=== PATIENT | male | born 1955 | race Caucasian/White ===

== ENCOUNTER 2018-11-18 13:36 | Emergency (ER) | payer SELFPAY ==
[~2018-11-18] VITALS: Ht 170.2 cm; Wt 86.7 kg
[~2018-11-18 13:36] MED LIST: IBUP-1542 PO
[2018-11-18 13:47] VITALS: Ht 170.2 cm; Wt 86.7 kg
[2018-11-18] MEDS ORDERED: ONDANSETRON 4 MG INJ IV STA (14:15)
[2018-11-18 15:46] VITALS: BP 143/74; PULSE 83; RESP 16
--- NOTE | 2018-11-18 18:29 | ERD ---
ER Documentation Chief Complaint Chief Complaint pt stated hitting head multiple times at work, c/o headache, dizz, n/v HPI This is a 62-year-old man who states at work he struck his head multiple times accidentally against some wall cabinets and is worried because he has struck his head at least a few times over the last few weeks. He states he has a mild headache with some dizziness, but denies vomiting, no blurry vision, no loss of consciousness, no slurred speech, no weakness in his arms or legs ROS All systems reviewed and are negative except as per history of present illness. Medications Home Meds Active Scripts Ibuprofen* (Motrin*) 600 Mg Tab, 600 MG PO Q8 PRN for PAIN AND/OR INFLAMMATION, #30 TAB Prov:NEY ACEVEDO MD 11/18/18 Reported Medications [None] No Conflict Check 05/30/11 Allergies Allergies: Coded Allergies: No Known Allergies (Verified Allergy, Unknown, 11/18/18) PMhx/Soc History of Surgery: Yes (APPY ) Anesthesia Reaction: No Hx Neurological Disorder: No Hx Alcohol Use: Yes (SOCIALLY) Hx Substance Use: No Hx Tobacco Use: No Smoking Status: Never smoker FmHx Family History: No diabetes Physical Exam Vitals Vital Signs Date Temp Pulse Resp B/P (MAP) Pulse Ox O2 O2 Flow FiO2 Time Delivery Rate 11/18/18 98.7 83 16 143/74 98 Room Air 15:46 (97) 11/18/18 98.7 91 16 174/93 98 13:47 (120) Physical Exam Const: No acute distress, well-developed well-nourished, afebrile HEENT: No evidence of hematomas or contusion to the scalp or forehead, cervical spine without deformity and nontender Resp: Clear to auscultation bilaterally Cardio: Regular rate and rhythm, no murmurs Ext: No cyanosis, or edema Neur: Awake and alert x3, no focal deficits or facial asymmetry, pupils equal round reactive to light Psych: Normal Mood and Affect Results 24 hrs Current Medications Medications Dose Sig/Kailyn Start Time Status Last (Trade) Ordered Route PRN Stop Time Admin Dose Reason Admin Ondansetron 4 mg ONCE STAT 11/18/18 DC 11/18/18 HCl (Zofran IV 14:15 14:40 Inj) 7/31/19 14:16 Procedures/MDM I administered Zofran 4 mg IV for dizziness. CT scan of the brain was negative for acute bleed mass or shift. Patient has a GCS of 15 and no neurologic deficits on examination, gait is normal and patient has no signs of serious underlying injury and no evidence of serious trauma. Patient feels much better at this time, and vital signs are normal, symptoms have improved. I did give strict instructions to return to the ED if symptoms continue or worsen, patient will otherwise follow-up with primary care physician. Patient understood instructions and agreed to plan. Disclaimer: Inadvertent spelling and grammatical errors are likely due to EHR/dictation software use and do not reflect on the overall quality of patient care. Also, please note that the electronic time recorded on this note does not necessarily reflect the actual time of the patient encounter. Departure Diagnosis: Primary Impression: Head ache Headache type: tension-type Headache chronicity pattern: acute headache Intractability: not intractable Qualified Codes: G44.209 - Tension-type headache, unspecified, not intractable Additional Impression: Closed head injury Encounter type: initial encounter Qualified Codes: S09.90XA - Unspecified injury of head, initial encounter Condition: Good Patient Instructions: HEAD INJURY, No Wake-Up (Adult) NEY ACEVEDO MD Nov 18, 2018 18:29
== END 2018-11-18 15:41 | disposition home or self-care (01) ==
LOC: FTE 13:36
DX: S09.90XA Unspecified injury of head, initial encounter (principal); G44.209 Tension-type headache, unspecified, not intractable; R42 Dizziness and giddiness; W22.8XXA Striking against or struck by other objects, initial encounter; Y92.89 Other specified places as the place of occurrence of the external cause
CPT/HCPCS: 70450; 96374; 99285; J2405